=== PATIENT | male | born 1950 | race Caucasian/White ===

== ENCOUNTER → 2018-05-25 | Outpatient (CLI) | payer OTHER, BC ==
--- NOTE | ~2018-05-25 | EKG ---
[address] [address] ELECTROCARDIOGRAM REPORT Name: GEETHA NAIK Room #: [facility] Karolina#: [id number] Admission: 05/25/18 Attend Phys: Maritza Daley MD Discharge: Date of : 54 Report #: [id number] THIS REPORT FOR: //name// [facility] Test Date: 2018-05-25 Test Time: 10:58:38 Pat Name: GEETHA NAIK Department: Room: Gender: Iron Bender: MONIQUE : 1950 Requested By: Maritza Daley Order Number: [id number] MD: Xu Santos Measurements Intervals [place] Rate: 60 P: 66 AK: 173 QRS: 62 QRSD: 101 T: -35 QT: 369 QTc: 369 Interpretive Statements Sinus rhythm Early transition repolarization abnormality Compared to ECG 08/21/2011 14:30:05 no significant changes Electronically Signed On 05-25-2018 13:07:14 [employer] by Xu Santos [email or web address] <ELECTRONICALLY SIGNED> By: Xu Santos MD 05/25/18 1307 1058 1058 Xu Santos MD /ZAYRA
== END ==
LOC: CV 10:13
DX: Z01.818 Encounter for other preprocedural examination (principal); E87.79 Other fluid overload